=== PATIENT | female | born 1955 | race Caucasian/White ===

== ENCOUNTER 2016-11-27 15:17 | Outpatient (CLI) | payer BC, OTHER ==
[2016-11-27 18:52] LABS: BASOPHILS % (AUTO) 0.8 %; EOSINOPHILS # (AUTO) 0.3 10^3/uL (0.0-0.7); HCT - HEMATOCRIT 40.3 % (37.0-47.0); HGB - HEMOGLOBIN 13.5 g/dL (12.0-16.0); LYMPHOCYTES # (AUTO) 2.3 10^3/uL (1.5-3.5); LYMPHOCYTES % (AUTO) 41.8 %; MEAN CORPUSCULAR HEMOGLOBIN 31.4 pg (27.0-31.0); MEAN CORPUSCULAR HGB CONC 33.6 g/dL (32.0-36.0); MEAN CORPUSCULAR VOLUME 93.3 fL (81.0-99.0); MEAN PLATELET VOLUME 7.9 fL (7.9-10.8); MONOCYTES # (AUTO) 0.3 10^3/uL (0.0-1.0); MONOCYTES % (AUTO) 5.9 %; NEUTROPHILS # (AUTO) 2.5 10^3/uL (1.5-6.6); NEUTROPHILS % (AUTO) 46.5 %; NUCLEATED RED BLOOD CELLS AUTO 0.1 /100WBC; RED BLOOD COUNT 4.32 10^6/uL (4.20-5.40); RED CELL DISTRIBUTION WIDTH 13.1 % (12.0-15.0); UNCORRECTED WHITE BLOOD COUNT 5.5 x10^3/uL; WHITE BLOOD COUNT 5.5 x10^3/uL (4.8-10.8)
[2016-11-27 19:08] LABS: ALBUMIN/GLOBULIN RATIO 1.6 (1.0-2.2); BILIRUBIN,TOTAL 0.8 mg/dL (0.2-1.0); BUN - BLOOD UREA NITROGEN 11 mg/dL (6-20); CALCIUM 9.1 mg/dL (8.5-10.3); CARBON DIOXIDE - CO2 27 mmol/L (21-32); CHLORIDE 103 mmol/L (101-111); CHOL/HDL RATIO 3.2 (<4.4); CHOLESTEROL 224 mg/dL; CREATININE 0.7 mg/dL (0.4-1.0); GFR - MDRD 85 (>89); GLUCOSE 92 mg/dL (70-100); HDL CHOLESTEROL 70 mg/dL; SODIUM 137 mmol/L (135-145); TOTAL PROTEIN 6.6 g/dL (6.7-8.2); TRIGLYCERIDES 79 mg/dL; VLDL CHOLESTEROL 16 mg/dL
== END 2016-11-27 15:18 | disposition home or self-care (01) ==
LOC: LAB.N 15:17
PROVIDERS: ATTEND Physician Assistant
DX: E78.5 Hyperlipidemia, unspecified (principal)
CPT/HCPCS: 36415; 80053; 80061; 84443; 85025

== ENCOUNTER 2016-12-15 09:21 | Outpatient (CLI) | payer OTHER | END 2016-12-15 09:22 | disposition home or self-care (01) | LOC: SC 09:21 | PROVIDERS: ATTEND Internal Medicine Pulmonary Disease | DX: G47.10 Hypersomnia, unspecified (principal); R06.83 Snoring | CPT/HCPCS: 99203; 99212 ==

== ENCOUNTER 2017-01-08 14:35 | Outpatient (CLI) | payer OTHER | END 2017-01-08 14:36 | disposition home or self-care (01) | LOC: LAB.WCP 14:35 | PROVIDERS: ATTEND Family Medicine | DX: Z20.5 Contact with and (suspected) exposure to viral hepatitis (principal) | CPT/HCPCS: 36415; 86803 ==

== ENCOUNTER 2017-01-20 19:19 | Outpatient (CLI) | payer OTHER | END 2017-01-20 19:20 | disposition home or self-care (01) | LOC: SC 19:19 | PROVIDERS: ATTEND Internal Medicine Pulmonary Disease | DX: G47.33 Obstructive sleep apnea (adult) (pediatric) (principal) | CPT/HCPCS: 95810 ==

== ENCOUNTER 2017-02-16 14:12 | Outpatient (CLI) | payer OTHER | END 2017-02-16 14:13 | disposition home or self-care (01) | LOC: SC 14:12 | PROVIDERS: ATTEND Nurse Practitioner Family | DX: G47.33 Obstructive sleep apnea (adult) (pediatric) (principal) | CPT/HCPCS: 99212; 99214 ==

== ENCOUNTER 2017-04-22 20:25 | Outpatient (CLI) | payer OTHER | END 2017-04-22 20:26 | disposition home or self-care (01) | LOC: SC 20:25 | PROVIDERS: ATTEND Internal Medicine Pulmonary Disease | DX: G47.33 Obstructive sleep apnea (adult) (pediatric) (principal) | CPT/HCPCS: 95811 ==

== ENCOUNTER 2017-05-27 14:11 | Outpatient (CLI) | payer OTHER | END 2017-05-27 14:12 | disposition home or self-care (01) | LOC: SC 14:11 | PROVIDERS: ATTEND Nurse Practitioner Family | DX: G47.33 Obstructive sleep apnea (adult) (pediatric) (principal) | CPT/HCPCS: 99212; 99214 ==

== ENCOUNTER 2017-07-13 11:14 | Outpatient (CLI) | payer OTHER | END 2017-07-13 11:15 | disposition home or self-care (01) | LOC: SC 11:14 | PROVIDERS: ATTEND Nurse Practitioner Family | DX: G47.33 Obstructive sleep apnea (adult) (pediatric) (principal) | CPT/HCPCS: 99212; 99215 ==

== ENCOUNTER 2017-08-24 15:17 | Outpatient (CLI) | payer OTHER | END 2017-08-24 15:18 | disposition home or self-care (01) | LOC: SC 15:17 | PROVIDERS: ATTEND Nurse Practitioner Family | DX: G47.33 Obstructive sleep apnea (adult) (pediatric) (principal) | CPT/HCPCS: 99212; 99214 ==

== ENCOUNTER 2017-11-04 15:25 | Outpatient (CLI) | payer OTHER | END 2017-11-04 15:26 | disposition home or self-care (01) | LOC: SC 15:25 | PROVIDERS: ATTEND Nurse Practitioner Family | DX: G47.33 Obstructive sleep apnea (adult) (pediatric) (principal); R53.83 Other fatigue | CPT/HCPCS: 99212; 99214 ==

== ENCOUNTER 2017-11-13 09:31 | Outpatient (CLI) | payer OTHER ==
[2017-11-13 12:59] LABS: EOSINOPHILS # (AUTO) 0.4 10^3/uL (0.0-0.7); EOSINOPHILS % (AUTO) 7.8 %; HGB - HEMOGLOBIN 13.9 g/dL (12.0-16.0); LYMPHOCYTES # (AUTO) 1.9 10^3/uL (1.5-3.5); MEAN CORPUSCULAR HEMOGLOBIN 31.9 pg (27.0-31.0); MEAN CORPUSCULAR HGB CONC 33.4 g/dL (32.0-36.0); MEAN CORPUSCULAR VOLUME 95.3 fL (81.0-99.0); MEAN PLATELET VOLUME 7.8 fL (7.9-10.8); MONOCYTES # (AUTO) 0.4 10^3/uL (0.0-1.0); MONOCYTES % (AUTO) 7.9 %; NEUTROPHILS # (AUTO) 2.2 10^3/uL (1.5-6.6); NEUTROPHILS % (AUTO) 44.3 %; PLT - PLATELET COUNT 243 10^3/uL (130-450); RED BLOOD COUNT 4.35 10^6/uL (4.20-5.40); RED CELL DISTRIBUTION WIDTH 13.2 % (12.0-15.0); WHITE BLOOD COUNT 4.9 x10^3/uL (4.8-10.8)
[2017-11-13 14:05] LABS: ALBUMIN 3.6 g/dL (3.2-5.5); ALBUMIN/GLOBULIN RATIO 1.2 (1.0-2.2); ALKALINE PHOSPHATASE 71 IU/L (42-121); ALT ALANINE AMINOTRANSFERASE 19 IU/L (10-60); AST ASPARTATE AMINOTRANSFERASE 18 IU/L (10-42); BILIRUBIN,TOTAL 0.7 mg/dL (0.2-1.0); BUN - BLOOD UREA NITROGEN 18 mg/dL (6-20); CALCIUM 9.2 mg/dL (8.5-10.3); CARBON DIOXIDE - CO2 28 mmol/L (21-32); CHLORIDE 103 mmol/L (101-111); CHOL/HDL RATIO 3.6 (<4.4); CHOLESTEROL 238 mg/dL; CREATININE 0.7 mg/dL (0.4-1.0); GFR - MDRD 85 (>89); GLUCOSE 92 mg/dL (70-100); HDL CHOLESTEROL 67 mg/dL; LDL CHOLESTEROL,CALCULATED 145 mg/dL; LDL/HDL RATIO 2.2 (<4.4); SODIUM 137 mmol/L (135-145); TOTAL PROTEIN 6.7 g/dL (6.7-8.2); VLDL CHOLESTEROL 26 mg/dL
== END 2017-11-13 09:32 | disposition home or self-care (01) ==
LOC: LAB.WCP 09:31
PROVIDERS: ATTEND Family Medicine
DX: I10 Essential (primary) hypertension (principal); E78.00 Pure hypercholesterolemia, unspecified
CPT/HCPCS: 36415; 80053; 80061; 83721; 84443; 85025

== ENCOUNTER 2018-04-09 14:23 | Outpatient (CLI) | payer OTHER ==
--- NOTE | 2018-04-12 08:17 | Mammography Report ---
Reason: SCREENING MAMMO Procedure Date: 04/09/2018 Accession Number: [id number] / [id number] Procedure: MGN - Screening Mammo Dig Bilat CPT Code: FULL RESULT: EXAM: Screening Mammo Dig Bilat DATE: 04/09/2018 2:40 PM CLINICAL HISTORY: 63-year-old female for screening. TECHNIQUE: Bilateral CC and MLO views were obtained. COMPARISON: 11/29/2015, 05/03/2014, 02/04/2013, 04/29/2011. FINDINGS: The breasts demonstrate diffuse fatty replacement bilaterally. No suspicious masses, clustered microcalcifications, or regions of architectural distortion are identified. IMPRESSION: Negative examination RECOMMENDATION: Routine annual screening unless otherwise clinically indicated. BIRADS CATEGORY 1: Negative STANDARD QUALIFYING STATEMENTS: 1. This examination was reviewed with the aid of Computer-Aided Detection (CAD). 2. A negative or benign imaging report should not delay biopsy if clinically suspicious findings are present. Consider surgical consultation if warranted. More than 5% of cancers are not identified by imaging. 3. Dense breasts may obscure an underlying neoplasm. 4. This examination was reviewed without the aid of 3D breast imaging (tomosynthesis).
== END 2018-04-09 14:24 | disposition home or self-care (01) ==
LOC: DI.N 14:23
DX: Z12.31 Encounter for screening mammogram for malignant neoplasm of breast (principal)
CPT/HCPCS: 77067

== ENCOUNTER 2018-05-11 14:50 | Outpatient (CLI) | payer OTHER | END 2018-05-11 14:51 | disposition home or self-care (01) | LOC: SC 14:50 | PROVIDERS: ATTEND Nurse Practitioner Family | DX: G47.33 Obstructive sleep apnea (adult) (pediatric) (principal) | CPT/HCPCS: 99212; 99214 ==

== ENCOUNTER 2020-03-30 09:37 | Outpatient (CLI) | payer OTHER ==
[2020-03-30 11:42] LABS: BASOPHILS # (AUTO) 0.1 10^3/uL (0.0-0.1); BASOPHILS % (AUTO) 1.2 %; EOSINOPHILS # (AUTO) 0.4 10^3/uL (0.0-0.7); EOSINOPHILS % (AUTO) 7.4 %; HGB - HEMOGLOBIN 14.7 g/dL (12.0-16.0); LYMPHOCYTES # (AUTO) 2.2 10^3/uL (1.5-3.5); LYMPHOCYTES % (AUTO) 43.5 %; MEAN CORPUSCULAR HGB CONC 33.2 g/dL (32.0-36.0); MEAN CORPUSCULAR VOLUME 96.3 fL (81.0-99.0); MEAN PLATELET VOLUME 9.8 fL (7.9-10.8); MONOCYTES # (AUTO) 0.5 10^3/uL (0.0-1.0); MONOCYTES % (AUTO) 9.4 %; NEUTROPHILS % (AUTO) 38.3 %; PLT - PLATELET COUNT 255 10^3/uL (130-450); RED CELL DISTRIBUTION WIDTH 12.3 % (12.0-15.0); WHITE BLOOD COUNT 5.1 x10^3/uL (4.8-10.8)
[2020-03-30 11:47] LABS: ALBUMIN 4.1 g/dL (3.2-5.5); ALBUMIN/GLOBULIN RATIO 1.4 (1.0-2.2); ALKALINE PHOSPHATASE 81 IU/L (42-121); ALT ALANINE AMINOTRANSFERASE 19 IU/L (10-60); AST ASPARTATE AMINOTRANSFERASE 15 IU/L (10-42); BILIRUBIN,TOTAL 0.9 mg/dL (0.2-1.0); BUN - BLOOD UREA NITROGEN 22 mg/dL (6-20); CALCIUM 9.5 mg/dL (8.5-10.3); CARBON DIOXIDE - CO2 27 mmol/L (21-32); CHLORIDE 105 mmol/L (101-111); CHOL/HDL RATIO 3.4 (<4.4); CHOLESTEROL 257 mg/dL; CREATININE 0.9 mg/dL (0.4-1.0); GLUCOSE 100 mg/dL (70-100); HDL CHOLESTEROL 76 mg/dL; LDL CHOLESTEROL,CALCULATED 168 mg/dL; LDL/HDL RATIO 2.2 (<4.4); SODIUM 140 mmol/L (135-145); VLDL CHOLESTEROL 13 mg/dL
[2020-03-30 12:35] LABS: FREE T4 (FREE THYROXINE) 1.08 ng/dL (0.58-1.64)
== END 2020-03-30 23:59 | disposition home or self-care (01) ==
LOC: LAB.WCP 09:37
PROVIDERS: ATTEND Family Medicine
DX: Z00.00 Encounter for general adult medical examination without abnormal findings (principal); E03.9 Hypothyroidism, unspecified
CPT/HCPCS: 36415; 80053; 80061; 83721; 84439; 84443; 85025

== ENCOUNTER 2020-05-01 15:03 | Outpatient (CLI) | payer OTHER ==
--- NOTE | 2020-05-02 08:47 | Mammography Report ---
BILATERAL DIGITAL SCREENING MAMMOGRAM 3D/2D: 05/01/2020 CLINICAL: Routine screening. Comparison is made to exams dated: 04/09/2018 mammogram, 11/29/2015 mammogram, 05/03/2014 mammogram, mammogram, 04/29/2011 mammogram, and 08/13/2009 mammogram - [facility]. The re are scattered fibroglandular elements in both breasts. No significant masses, calcifications, or other findings are seen in either breast. There has been no significant interval change. IMPRESSION: NEGATIVE There is no mammographic evidence of malignancy. A 1 year screening mammogram is recommended. This exam was interpreted at Station ID: [id number]. NOTE: For mammograms, a report in lay terms will be sent to the patient. Approximately 15% of breast malignancies will not be visualized mammographically. In the management of a palpable breast mass, a negative mammogram must not discourage biopsy of a clinically suspicious lesion. Electronically Signed By: Kamlesh henley/cali:05/01/2020 16:59:55 ACR BI-RADS Category 1: Negative 3341F PARENCHYMAL PATTERN: (A) - The breast(s) demonstrate(s) scattered fibroglandular densities. BI-RADS CATEGORY: (1) - 1 RECOMMENDATION: (ANNUAL) - Recommend routine annual screening mammography. [id number] 1 year screening LATERALITY: (B)
== END 2020-05-01 15:04 | disposition home or self-care (01) ==
LOC: DI.N 15:03
DX: Z12.31 Encounter for screening mammogram for malignant neoplasm of breast (principal)

== ENCOUNTER 2020-08-01 15:09 | Outpatient (CLI) | payer OTHER ==
--- NOTE | 2020-08-01 15:52 | SLEEP CARE CONSULTATION ---
Information from patient questionnaire entered by Jazz Maurice. I have reviewed and concur with the information entered by Jazz Maurice. This document represents the service I personally performed and the decisions made by , Melissa Reed ARNP. History of Present Illness Service Date and Time: 08/01/2020 1509 Previous diagnosis: Severe, Obstructive Sleep Apnea-Hypopnea Syndrome AHI: 30.4 Reason for follow up: annual (Last seen 04/2018) Equipment type: CPAP Equipment obtained from: Other (online; getting supplies cheaper and as needed) Mask style: Nasal Backup mask available: No (will need to keep mask when replaced) Last cushion change: 2 months Year and Where: 2017 [facility] Type of Sleep Study: Polysomnography HPI additional information: PILAR MEDINA was diagnosed to have severe, AHI 30.4, obstructive sleep apnea- hypopnea syndrome and returned today for CPAP therapy annual follow-up. CPAP Compliance Data - Data Reviewed with Patient Average duration of nightly device use: 8 h 37 min Compliance rate %: 77.2 Current pressure setting (cmH2O): 12-16 Humidity settin Heated hose settin Average residual AHI: 3.8 Average large leak: 12 min 45 sec Subjective Patient concerns: reports: dry mouth, nose, throat. denies: aerophagia, mask discomfort, air blowing in eyes, mask leak noise, condensation in mask/hose, nasal congestion, epistaxis, other Observed to snore while using device: No Current pressure setting perceived as: comfortable On therapy, patient: reports: sleeping better, awakening more refreshed, being more awake and alert during the day, more rested overall. denies: drowsiness while driving Initial [place] Sleepiness Scale score: 16 (in 2017) Current [place] Sleepiness Scale score: 7 Allergies and Home Medications Drug allergies reviewed: Yes (NKDA) Home medication list reviewed: Yes (no new medications) Review of Systems Review of systems same as previous: Yes (no changes) Physical Exam Heart Rate: 69 O2 Saturation: 98 Height: 5 ft 4 in Weight: 164 lb Body Mass Index: 28.1 BMI Classification: Overweight Impression and Plan 1. Obstructive Sleep Apnea-Hypopnea Syndrome, severe, with fair treatment compliance and good apnea control. On CPAP therapy, the patient has better sleep quality and is more rested overall. She has some mouth dryness. Her humidity is set at 5. Oral dryness can be reduced by adjusting humidity setting higher or heated hose lower or by adjusting both settings. Verbal instructions given on how to change humidity and heated hose settings with rationale explaining why to change. Patient is using a chinstrap to keep mouth closed but is not sure if it is working. She was advised that she could try a full face mask and options were shown to her that are in the office. She would like to try the [facility] full face mask. She obtains her supplies online because it is cheaper for her. She will try this mask to see if it will help with the mouth dryness. Patient adv ised that chronic oral dryness can affect dental health. In addition, there are oral dryness products that can be used to reduce dryness such as Biotene products, Dry mouth rinse and Xylomelts. Patient voiced understanding. Patient's apnea severity and rationale for treatment to reduce apnea, improve sleep quality and reduce cardiovascular and cerebrovascular events was reviewed. I also reviewed the benefit of consistent device use of CPAP for gastric reflux. * Continue auto CPAP pressure at 12-16 cmH2O * Notify me if snoring with mask or feeling that the pressure is too much or too little * Attempt to lose weight * Call this office if any problems using CPAP * Return for follow up in 1 year, or sooner if concerns arise Counseling Topics: Spare mask, Weight loss health impact Visit Type: In Office Time Spent with Patient (minutes): 31 Provider Statement: I spent 100% of the Face to Face Visit with the patient with greater than 50% spent counseling the patient and coordination of care.
== END 2020-08-01 15:10 | disposition home or self-care (01) ==
LOC: SC 15:09
PROVIDERS: ATTEND Nurse Practitioner Family
DX: G47.33 Obstructive sleep apnea (adult) (pediatric) (principal); E66.3 Overweight; Z68.28 Body mass index [BMI] 28.0-28.9, adult
CPT/HCPCS: 99212; 99213

== ENCOUNTER 2020-12-10 18:34 | Outpatient (CLI) | payer OTHER ==
--- NOTE | 2020-12-11 10:52 | XRAY Report ---
PROCEDURE: Ribs w/PA Chest LT INDICATIONS: FALL WITH L RIB PX TECHNIQUE: 3 views of the left ribs were acquired, along with a single view chest. COMPARISON: None FINDINGS: Surgical changes and devices: None. Bones and chest wall: No fractures or dislocations. No suspicious bony lesions. Overlying soft tis sues appear unremarkable. Lungs and pleura: No pleural effusions or pneumothorax. Lungs appear clear. Mediastinum: Mediastinal contours appear normal. Heart size is normal. IMPRESSION: No visualized acute fracture or dislocation. However, occult injury cannot be excluded. Recommend ely rt interval imaging follow-up in 7-10 days as clinically indicated for additional evaluation. Reviewed by: Ayana Jose MD on 12/11/2020 10:51 AM PDT Approved by: Ayana Jose MD on 12/11/2020 10:51 AM PDT Station ID: [id number]
== END 2020-12-10 23:59 | disposition home or self-care (01) ==
LOC: DI.N 18:34
PROVIDERS: ATTEND Physician Assistant Medical
DX: S22.32XA Fracture of one rib, left side, initial encounter for closed fracture (principal)

== ENCOUNTER 2021-06-08 09:41 | Outpatient (CLI) | payer OTHER, MEDICARE ==
[2021-06-08 14:05] LABS: BASOPHILS # (AUTO) 0.1 10^3/uL (0.0-0.1); BASOPHILS % (AUTO) 1.8 %; EOSINOPHILS # (AUTO) 0.3 10^3/uL (0.0-0.7); EOSINOPHILS % (AUTO) 7.3 %; HCT - HEMATOCRIT 42.5 % (37.0-47.0); HGB - HEMOGLOBIN 13.9 g/dL (12.0-16.0); LYMPHOCYTES # (AUTO) 1.8 10^3/uL (1.5-3.5); MEAN CORPUSCULAR HEMOGLOBIN 31.6 pg (27.0-31.0); MEAN CORPUSCULAR HGB CONC 32.7 g/dL (32.0-36.0); MEAN CORPUSCULAR VOLUME 96.6 fL (81.0-99.0); MEAN PLATELET VOLUME 10.1 fL (7.9-10.8); MONOCYTES # (AUTO) 0.4 10^3/uL (0.0-1.0); MONOCYTES % (AUTO) 8.2 %; NEUTROPHILS % (AUTO) 43.5 %; PLT - PLATELET COUNT 274 10^3/uL (130-450); RED CELL DISTRIBUTION WIDTH 12.2 % (12.0-15.0); WHITE BLOOD COUNT 4.5 x10^3/uL (4.8-10.8)
[2021-06-08 14:19] LABS: ALBUMIN 3.9 g/dL (3.2-5.5); ALBUMIN/GLOBULIN RATIO 1.3 (1.0-2.2); ALKALINE PHOSPHATASE 70 IU/L (42-121); ALT ALANINE AMINOTRANSFERASE 19 IU/L (10-60); AST ASPARTATE AMINOTRANSFERASE 14 IU/L (10-42); BILIRUBIN,TOTAL 0.7 mg/dL (0.2-1.0); BUN - BLOOD UREA NITROGEN 21 mg/dL (6-20); CALCIUM 9.4 mg/dL (8.5-10.3); CARBON DIOXIDE - CO2 27 mmol/L (21-32); CHLORIDE 104 mmol/L (101-111); CHOL/HDL RATIO 3.1 (<4.4); CHOLESTEROL 230 mg/dL; CREATININE 0.7 mg/dL (0.4-1.0); GFR - MDRD 84 (>89); GLUCOSE 100 mg/dL (70-100); HDL CHOLESTEROL 75 mg/dL; LDL CHOLESTEROL,CALCULATED 143 mg/dL; LDL/HDL RATIO 1.9 (<4.4); SODIUM 139 mmol/L (135-145); TOTAL PROTEIN 6.8 g/dL (6.7-8.2); TRIGLYCERIDES 59 mg/dL; VLDL CHOLESTEROL 12 mg/dL
[2021-06-08 14:28] LABS: THYROID STIMULATING HORMONE 3.78 uIU/mL (0.34-5.60)
== END 2021-06-08 09:42 | disposition home or self-care (01) ==
LOC: LAB.N 09:41
PROVIDERS: ATTEND Family Medicine
DX: E78.5 Hyperlipidemia, unspecified (principal); E03.9 Hypothyroidism, unspecified; K64.9 Unspecified hemorrhoids
CPT/HCPCS: 36415; 80053; 80061; 83721; 84443; 85025

== ENCOUNTER 2021-09-26 14:44 | Outpatient (CLI) | payer MEDICARE ==
--- NOTE | 2021-09-26 15:48 | DEXA Report ---
PROCEDURE: Dexa Spine and/or Hip INDICATIONS: POSTMENOPAUSAL TECHNIQUE: Dual energy x-ray absorptiometry (DXA) was performed on a [employer] System. Regions measur ed are the AP Spine, femoral neck, and if needed forearm. COMPARISON: None. FINDINGS: Lumbar Spine: Bone Mineral Density 1.0 g/cm/cm,T score -1.3, osteopenia Left total Hip: Bone Mineral Density 0.719 g/cm/cm,T score -2.3, osteopenia Left Femoral Neck: Bone Mineral Density 0.733 g/cm/cm, T score -2.2, osteopenia Impression: Osteopenia. Patients with diagnosis of osteoporosis or osteopenia should have regular bone mineral de nsity assessment. For those eligible for Medicare, routine testing is allowed once every 2 years. T esting frequency can be increased for patients who have rapidly progressing disease or for those who are receiving medical therapy to restore bone mass. Reviewed by: Shankar Viramontes MD on 09/26/2021 3:46 PM PDT Approved by: Shankar Viramontes MD on 09/26/2021 3:46 PM PDT Station ID: [id number]
== END 2021-09-26 14:45 | disposition home or self-care (01) ==
LOC: DI 14:44
PROVIDERS: ATTEND Family Medicine
DX: Z78.0 Asymptomatic menopausal state (principal); M85.89 Other specified disorders of bone density and structure, multiple sites; M17.0 Bilateral primary osteoarthritis of knee; M71.21 Synovial cyst of popliteal space [Baker], right knee

== ENCOUNTER 2021-09-26 16:05 | Outpatient (CLI) | payer MEDICARE ==
--- NOTE | 2021-09-26 17:14 | XRAY Report ---
PROCEDURE: Knee 4 View BILAT INDICATIONS: BILATERAL KNEE PAIN TECHNIQUE: 3 views of the right and left knee(s) were acquired. COMPARISON: None. FINDINGS: Bones: No fractures or dislocations. No suspicious bony lesions. Bilateral knee medial compartment severe osteoarthritic degenerative changes. Bilateral knee lateral and patellofemoral compartment mod erate osteoarthritic degenerative change. Soft tissues: Trace right knee nonspecific joint effusion. 1.7 cm coarse calcification noted posterio r to the right knee joint may represent ossified loose body within a popliteal cyst. IMPRESSION: Bilateral knee severe medial compartment, moderate lateral compartment and moderate patellofemoral co mpartment osteoarthritis. Possible 1.7 cm ossified loose body within the right popliteal cyst. Reviewed by: Charu Berman MD, PhD on 09/26/2021 5:13 PM PDT Approved by: Charu Berman MD, PhD on 09/26/2021 5:13 PM PDT Station ID: [id number]
== END 2021-09-26 16:06 | disposition home or self-care (01) ==
LOC: DI.N 16:05
PROVIDERS: ATTEND Family Medicine
DX: M17.0 Bilateral primary osteoarthritis of knee (principal); M71.21 Synovial cyst of popliteal space [Baker], right knee

== ENCOUNTER 2021-10-19 13:40 | Emergency (ER) | payer MEDICARE ==
[2021-10-19 13:53] VITALS: BP 158/82
--- NOTE | 2021-10-19 13:55 | ED Physician Documentation ---
PD HPI LOWER EXT INJURY - Stated complaint Stated Complaint: LEG PX - Chief complaint Chief Complaint: Ext Problem - History obtained from History obtained from: Patient - History of Present Illness PD HPI LOW EXT INJURY LOCATION: Right, Knee, Lower leg Type of injury: Blunt / blow (she states a tray fell at work, striking her medial upper part of lower leg right side. Had swelling and faint bruising color there after injury. It has continued to be tender there and now has redness and firmness under skin. Went to [facility] and provider there was concerned about DVT.) Where injury occurred: Work Timing - onset: How many days ago (5) Timing - duration: Days (5) Timing - details: Abrupt onset, Still present Worsened by: Palpating Associated symptoms: Swelling, Discolored (red locally just at medial upper tibia and knee.). No: Weakness, Numbness Review of Systems Constitutional: denies: Fever, Chills Nose: denies: Rhinorrhea / runny nose, Congestion Throat: denies: Sore throat Cardiac: denies: Chest pain / pressure, Palpitations, Pedal edema, Calf pain Respiratory: denies: Dyspnea, Cough, Wheezing Skin: denies: Abrasion (s), Laceration (s) Neurologic: denies: Focal weakness, Numbness PD PAST MEDICAL HISTORY - Past Medical History Cardiovascular: None (no history of DVT/PE.) Respiratory: None Endocrine/Autoimmune: HyPERthyroidism Psych: None Musculoskeletal: None - Present Medications Home Medications: Ambulatory Orders Medication Instructions Recorded Confirmed Levothyroxine [Synthroid] 100 mcg ORAL DAILY 03/22/14 10/19/21 - Allergies Allergies/Adverse Reactions: Allergies Allergy/AdvReac Type Severity Reaction Status Date / Time No Known Drug Allergies Allergy Verified 10/19/21 13:53 - Living Situation Living Situation: reports: Alone Living Arrangement: reports: At home - Social History Does the pt smoke?: No Does the pt have substance abuse?: No - Family History Family history: reports: CAD. denies: Venous thromboembolism PD ED PE NORMAL - Vitals Vital signs reviewed: Yes - General General: Alert and oriented X 3, No acute distress, Well developed/nourished - Derm Derm: Normal color, Warm and dry - Extremities Extremities: Normal ROM s pain, No edema, Other (medial side of right knee and upper lower leg over tibial plateau with superficial redness and some tender, with warmth, redness, firmness in area. Firmness feels in shape of venous vessel, c/s superficial phlebitis. ) - Neuro Neuro: Alert and oriented X 3, No motor deficit, No sensory deficit, Normal speech Results - Vitals Vitals: Vital Signs - 24 hr 10/19/21 13:48 Temperature 36.3 C L Heart Rate 78 Respiratory 16 Rate Blood Pressure 158/82 H O2 Saturation 99 Oxygen O2 Source Room air - Rads (name of study) duplex right lower ext Radiology: Prelim report reviewed, See rad report, Other (from U/S tech: no DVT. SVT is visible on scan. ) PD MEDICAL DECISION MAKING - ED course Complexity details: reviewed results, considered differential (the area looks and feels c/w post-contusion superficial thrombophlebitis. Discussed with patient and shared decision to get U/S to ensure not deep veins as well. ), d/w patient Departure - Departure Disposition: 01 Home, Self Care Clinical Impression: Superficial phlebitis and thrombophlebitis of right lower extremity Clinical Impression: (Ruled Out): Deep vein thrombosis Condition: Stable Record reviewed to determine appropriate education?: Yes Instructions: ED Phlebitis Superficial Follow-Up: Silver Cortes DO [Primary Care Provider] - Comments: Warm moist towels to the area 2-3 times daily to help soften the clot and the surface vein. Your ultrasound did not show any signs of clots in the deep veins. You can use a small wrap on the area to help with some of the inflammation or swelling. We also typically suggest anti-inflammatory such as ibuprofen or naproxen 2 tablets 2-3 times daily for the next week. Take these with food. Add Tylenol every 4-6 hours if needed for pains. I would anticipate improvement over the next several days to week. Recheck if worsening. Discharge Date/Time: 10/19/21 15:46
[2021-10-19] MEDS ORDERED: NAPROXEN 250 MG TABLET PO STA (14:09)
--- NOTE | 2021-10-19 16:02 | Ultrasound Report ---
PROCEDURE: Duplex Ext Veins Right INDICATIONS: superficial phlebitis, eval for DVT too TECHNIQUE: Real-time imaging, as well as color and pulse Doppler interrogation, were performed of the lower extr emity deep veins from the inguinal ligament to the popliteal fossa. COMPARISON: 03/13/2014 FINDINGS: The deep veins are normally compressible, and free of intraluminal thrombus. Color and pu lse Doppler demonstrate normal phasic intraluminal flow. There is normal augmentation response to di stal compression maneuver. Thrombosed superficial proximal calf varicosities can be seen. A Jasmine's cyst is seen measuring 5.3 x 1.2 x 3.3 cm. IMPRESSION: No findings of deep venous thrombosis are seen. Thrombosed superficial varicosities can be seen within the region of the calf. Note: Concordant preliminary findings given by the market news reporter upon the completion of the examination to Dr. Tavares. Reviewed by: Sascha Tay MD on 10/19/2021 3:00 PM AUDI Approved by: Sascha Tay MD on 10/19/2021 3:00 PM AUDI Station ID: [id number]
== END 2021-10-19 15:46 | disposition home or self-care (01) ==
LOC: ED 13:40
DX: I80.01 Phlebitis and thrombophlebitis of superficial vessels of right lower extremity (principal)
CPT/HCPCS: 93971; 99282; 99284; A9270

== ENCOUNTER 2021-11-11 13:30 | Outpatient (CLI) | payer MEDICARE ==
--- NOTE | 2021-11-12 13:43 | Mammography Report ---
BILATERAL DIGITAL SCREENING MAMMOGRAM 3D/2D WITH EXAGGERATED CC: 11/11/2021 CLINICAL: Routine screening. Comparison is made to exams dated: 05/01/2020 mammogram, 04/09/2018 mammogram, 11/29/2015 mammogram, an d 05/03/2014 mammogram - [facility]. There are scattered fibroglandular elements i n both breasts. No significant masses, calcifications, or other findings are seen in either breast. There has been no significant interval change. IMPRESSION: NEGATIVE There is no mammographic evidence of malignancy. A 1 year screening mammogram is recommended. This exam was interpreted at Station ID: [id number]. NOTE: For mammograms, a report in lay terms will be sent to the patient. Approximately 15% of breast malignancies will not be visualized mammographically. In the management of a palpable breast mass, a negative mammogram must not discourage biopsy of a clinically suspicious lesion. Electronically Signed By: Klever Lebron M.D. slc/penrad:11/11/2021 14:32:17 ACR BI-RADS Category 1: Negative 3341F PARENCHYMAL PATTERN: (A) - The breast(s) demonstrate(s) scattered fibroglandular densities. BI-RADS CATEGORY: (1) - 1 RECOMMENDATION: (ANNUAL) - Recommend routine annual screening mammography. [id number] 1 year screening LATERALITY: (B)
== END 2021-11-11 13:31 | disposition home or self-care (01) ==
LOC: DI.S 13:30
DX: Z12.31 Encounter for screening mammogram for malignant neoplasm of breast (principal)

== ENCOUNTER 2022-01-24 23:08 | Outpatient (CLI) | payer MEDICARE | END 2022-01-24 23:09 | disposition critical access hospital (66) | LOC: EMS 23:08 | DX: R41.0 Disorientation, unspecified (principal); R40.4 Transient alteration of awareness; M25.532 Pain in left wrist; W18.39XA Other fall on same level, initial encounter; Y92.481 Parking lot as the place of occurrence of the external cause; Z72.89 Other problems related to lifestyle | CPT/HCPCS: A0425; A0427 ==

== ENCOUNTER 2022-01-24 23:26 | Emergency (ER) | payer MEDICARE, OTHER ==
--- NOTE | 2022-01-25 00:30 | ED Physician Documentation ---
PD HPI Fall - Stated complaint Stated Complaint: ETOH, FELL, LOC - Chief complaint Chief Complaint: Trauma Hd/Nk - History obtained from History obtained from: Patient, EMS - History of Present Illness Mechanism of injury: Unknown Fall distance: Standing position Where injury occurred: Park Injury(ies) location: Left Uppper Extremity Quality of pain: Pain Associated symptoms: No: LOC, AMS, Amnesia, Neck pain, Weakness Worsens with: Movement, Palpation Contributing factors: Intoxicated. No: Anticoagulated Recently seen: Not recently seen - Additional information Additional information: BIBA from [employer]. Patient does not recall events leading to this ED visit. She admits to drinking alcohol tonight. She does not recall falling, tripping. She is oriented x 3, although slow to recall location and year. Her only c/o is left wrist pain . She is right hand dominant. She recalls being at the [employer], then being on ground and being transported to the hospital. Review of Systems Cardiac: reports: Reviewed and negative Respiratory: reports: Reviewed and negative GI: reports: Reviewed and negative Musculoskeletal: reports: Joint pain (left wrist), Joint swelling. denies: Neck pain, Back pain, Extremity pain, Extremity swelling Neurologic: denies: Generalized weakness, Focal weakness, Numbness, Headache, Head injury, LOC PD PAST MEDICAL HISTORY - Past Medical History Cardiovascular: None (no history of DVT/PE.) Respiratory: None Endocrine/Autoimmune: HyPERthyroidism Psych: None Musculoskeletal: None - Past Surgical History Past Surgical History: No - Present Medications Home Medications: Ambulatory Orders Medication Instructions Recorded Confirmed Levothyroxine [Synthroid] 100 mcg ORAL DAILY 03/22/14 10/19/21 HYDROcod/ACETAM 5/325 [Carbon 5/325] 1 - 2 tablet PO Q6H PRN #14 tablet 01/25/22 Ondansetron Odt [Zofran] 4 mg TL Q6H PRN #10 tablet 01/25/22 - Allergies Allergies/Adverse Reactions: Allergies Allergy/AdvReac Type Severity Reaction Status Date / Time No Known Drug Allergies Allergy Verified 10/19/21 13:53 - Social History Does the pt smoke?: No Smoking Status: Current some day smoker Does the pt drink ETOH?: Yes Does the pt have substance abuse?: No PD ED PE NORMAL - Vitals Vital signs reviewed: Yes - General General: Alert and oriented X 3, No acute distress, Well developed/nourished, Other (on backboard and in cervical collar) - HEENT HEENT: Atraumatic, PERRL, EOMI - Neck Neck: No bony TTP - Cardiac Cardiac: RRR, No murmur - Respiratory Respiratory: No respiratory distress, Clear bilaterally - Abdomen Abdomen: Soft, Non tender - Extremities Extremities: No edema - Neuro Neuro: Alert and oriented X 3 (takes some time to recall location and year, but provides accurate answers after some thought), surgery specialist 2-12 intact, No motor deficit, No sensory deficit, Normal speech Eye Opening: Spontaneous Motor: Obeys Commands Verbal: Oriented GCS Score: 15 PD ED PE EXPANDED - Extremities Extremities: Deformity, Tenderness, Limited ROM, Swelling, Left wrist, Sensory intact, Vascular intact Results - Vitals Vitals: Oxygen O2 Source Room air - Rads (name of study) left wrist xrays Radiology: Prelim report reviewed, See rad report CT head Radiology: Prelim report reviewed, See rad report CT cervical spine Radiology: Prelim report reviewed, See rad report Procedures - Splint (location) Upper extremity left Splint applied by: Tech Type of splint: Fiberglass, Short arm, Sugar tong Other: Patient tolerated well, No complications, Neurovascular intact, Good alignment, Sling provided PD MEDICAL DECISION MAKING - ED course Complexity details: reviewed results, re-evaluated patient, considered differential, d/w patient ED course: [place] [employer]. She admits to drinking alcohol tonight and is clinically intoxicated (polite, pleasant, but does not recall events, slurred speech). CTH and CT cervical spine without concerning findings. Left wrist fracture on xrays. Splint is placed on left wrist to stabilize the fracture and after several hours observation, she becomes more awake and alert and comfortable with d/c home. Results of tests d/w patient. I instructed her to follow up with orthopedic surgery for reevaluation of the wrist injury I removed the cervical spine collar at 02:15; CT cervical spine without concerning findings, denies neck pain, AAOx3. Departure - Departure Disposition: 01 Home, Self Care Clinical Impression: Fall Qualifiers: Encounter type: initial encounter Qualified Code(s): W19.XXXA - Unspecified fall, initial encounter Wrist fracture, left Qualifiers: Encounter type: initial encounter Fracture type: closed Qualified Code(s): S62.102A - Fracture of unspecified carpal bone, left wrist, initial encounter for closed fracture Condition: Good Instructions: ED Fx Wrist General Follow-Up: Yousuf Gomez MD [Provider Admit Priv/Credential] - Prescriptions: HYDROcod/ACETAM 5/325 [Carbon 5/325] 1 - 2 tablet PO Q6H PRN #14 tablet PRN Reason: Pain Ondansetron Odt [Zofran] 4 mg TL Q6H PRN #10 tablet PRN Reason: Nausea / Vomiting Comments: Keep the splint in place until you are seen by an orthopedic surgeon, ideally within the coming week. Contact information for an orthopedic surgeon has been provided elsewhere on these discharge instructions; you can contact that office but if an appointment cannot be arranged within the coming week, you can also contact your primary care provider's office to inquire about a referral. Prescriptions for ondansetron (anti-nausea medication) and vicodin (opiate pain medication) have been electronically submitted to [facility] pharmacy in [place]. Do not drink any alcohol or take any sedating medication if you take the vicodin. As we discussed, you should start taking a stool softener if you take the pain medication to prevent constipation Discharge Date/Time: 01/25/22 05:33
--- NOTE | 2022-01-25 01:23 | CT Report ---
PROCEDURE: HEAD WO INDICATIONS: fall, LOC, intoxicated TECHNIQUE: Noncontrast 4.5 mm thick angled axial sections acquired from the foramen magnum to the vertex. For r adiation dose reduction, the following was used: automated exposure control, adjustment of mA and/or kV according to patient size. COMPARISON: None. FINDINGS: Image quality: Excellent. CSF spaces: Basal cisterns are patent. No extra-axial fluid collections. Ventricles are normal in size and shape. Brain: No intracranial hemorrhage, mass, or mass effect. Macdonald-white matter interface appears preser june. Skull and face: Calvarium and visualized facial bones are intact, without suspicious lesions. Sinuses: Visualized sinuses demonstrate moderate mucosal thickening in the ethmoid sinuses and mild thickening in the maxillary sinuses. Mastoid air cells are clear. IMPRESSION: 1. No acute intracranial abnormality. Reviewed by: Kamlesh Tavarez MD on 01/25/2022 1:22 AM PDT Approved by: Kamlesh Tavarez MD on 01/25/2022 1:22 AM PDT Station ID: [id number]
--- NOTE | 2022-01-25 01:26 | CT Report ---
PROCEDURE: CERVICAL SPINE WO INDICATIONS: fall, LOC, intoxicated TECHNIQUE: Noncontrast 3 mm thick sections acquired from the skull base to the T4 level. Sagittal and coronal r eformats were then constructed. For radiation dose reduction, the following was used: automated exp osure control, adjustment of mA and/or kV according to patient size. COMPARISON: None. FINDINGS: Image quality: Excellent. Bones: No fractures or subluxation. There is straightening of the cervical lordosis. Multilevel dege nerative disc disease, uncovertebral joint arthropathy, and facet joint arthropathy are present. Visu alized superior ribs are intact. Soft tissues: Prevertebral soft tissues are normal in thickness. No paravertebral hematomas. No ap ical pneumothoraces. IMPRESSION: 1. No fracture or subluxation. Reviewed by: Kamlesh Mckay MD on 01/25/2022 1:25 AM PDT Approved by: Kamlesh Mckay MD on 01/25/2022 1:25 AM PDT Station ID: [id number]
--- NOTE | 2022-01-25 01:28 | XRAY Report ---
PROCEDURE: Wrist 3 View LT INDICATIONS: fall, left wrist pain TECHNIQUE: 3 views of the wrist were acquired. COMPARISON: None. FINDINGS: Bones: There is a mildly impacted fracture of the distal radius with articular extension to the radio carpal and distal radioulnar joints. Mild to moderate osteoarthritic changes demonstrated at the firs t carpometacarpal joint and triscaphe articulation. No suspicious bony lesions. Soft tissues: There is periarticular soft tissue swelling of the wrist most prominent dorsally. No s uspicious soft tissue calcifications. IMPRESSION: 1. Mildly impacted intra-articular fracture of the distal radius. Reviewed by: Kamlesh Mckay MD on 01/25/2022 1:27 AM PDT Approved by: Kamlesh Mckay MD on 01/25/2022 1:27 AM PDT Station ID: [id number]
[2022-01-25] MEDS ORDERED: ONDANSETRON 4 MG/2 ML VIAL IM STA (04:54)
[2022-01-25 05:03] VITALS: BP 167/96
== END 2022-01-25 05:33 | disposition home or self-care (01) ==
LOC: ED 23:26
DX: S62.102A Fracture of unspecified carpal bone, left wrist, initial encounter for closed fracture (principal); W19.XXXA Unspecified fall, initial encounter; Y92.830 Public park as the place of occurrence of the external cause; F17.200 Nicotine dependence, unspecified, uncomplicated
CPT/HCPCS: 29125; 99283; 99284

== ENCOUNTER 2022-02-05 09:42 | Outpatient (CLI) | payer MEDICARE | END 2022-02-05 09:43 | disposition home or self-care (01) | LOC: LAB 09:42 | PROVIDERS: ATTEND Orthopaedic Surgery | DX: Z01.812 Encounter for preprocedural laboratory examination (principal); S52.502A Unspecified fracture of the lower end of left radius, initial encounter for closed fracture; Z20.822 Contact with and (suspected) exposure to COVID-19 ==

== ENCOUNTER 2022-02-06 11:25 | Day surgery (SDC) | payer MEDICARE ==
[2022-02-06] MEDS ORDERED: CEFAZOLIN 2G/50ML 0.9% NS 2 GM/50 ML BAG IV ONE (11:44)
[2022-02-06] MEDS ORDERED: ACETAMINOPHEN 500 MG TABLET PO ONE (11:44)
[2022-02-06] MEDS ORDERED: CELECOXIB 100 MG CAPSULE PO ONE (11:45)
[2022-02-06] MEDS ORDERED: LACTATED RINGERS 1,000 ML IV ONE ×2 (11:57→13:58)
--- NOTE | 2022-02-06 12:12 | ANESTHESIA ---
Pre-Anesthesia VS, & Labs - Diagnosis left wrist fracture - Procedure left wrist closed reduction, percutaneous pinning Vital Signs: Temp Pulse Resp BP Pulse Ox 36.9 C 75 16 153/96 H 100 02/06/22 11:42 02/06/22 11:42 02/06/22 11:42 02/06/22 11:42 02/06/22 11:42 Height: 5 ft 4 in Weight (kg): 65 kg Body Mass Index: 24.5 BMI Classification: Healthy weight - NPO >8 hours - Is Patient ?: No Home Medications and Allergies Levothyroxine [Synthroid] 100 mcg ORAL DAILY 03/22/14 Allergies/Adverse Reactions: Allergies Allergy/AdvReac Type Severity Reaction Status Date / Time No Known Drug Allergies Allergy Verified 10/19/21 13:53 Anes History & Medical History - Anesthetic History Anesthesia Complications: reports: No previous complications - Medical History Cardiovascular: reports: None Pulmonary: reports: None, Sleep apnea, CPAP use Gastrointestinal: reports: None Urinary: reports: None Musculoskeletal: reports: None, Osteoarthritis Endocrine/Autoimmune: reports: HyPOthyroidism Skin: reports: None Smoking Status: Current some day smoker Psychosocial: reports: Alcohol (social) History of Cancer?: No - Surgical History General: reports: Colonoscopy Exam General: Alert, Oriented x3 Dental: WNL Mouth Opening: Greater than 4 Fingerbreadths Neck Mobility: Normal Mallampati classification: II Respiratory: Lungs clear Cardiovascular: Regular rate Plan Anesthesia Type: General, Supraclavicular Block Consent for Procedure(s) Verified and Reviewed: Yes Code Status: Attempt Resuscitation ASA classification: 2-Mild systemic disease Is this case an emergency?: No
[2022-02-06] MEDS ORDERED: PROPOFOL 200 MG/20 ML VIAL IVP ONE (12:36)
[2022-02-06] MEDS ORDERED: LIDOCAINE-MPF 2% 5 ML VIAL ONE ×2 (12:36→12:53)
[2022-02-06] MEDS ORDERED: fentaNYL 100 MCG/2 ML VIAL ONE (12:40)
[2022-02-06] MEDS ORDERED: DEXAMETHASONE 4 MG/ML VIAL ONE (12:41)
[2022-02-06] MEDS ORDERED: ONDANSETRON 4 MG/2 ML VIAL ONE (12:41)
[2022-02-06] MEDS ORDERED: BUPIVACAINE 0.5% PF 30 ML VIAL ONE (12:41)
[2022-02-06] MEDS ORDERED: LIDOCAINE MPF 2%-EPI 1:200000 20 ML VIAL ONE (12:41)
[2022-02-06] MEDS ORDERED: MIDAZOLAM 2 MG/2 ML VIAL ONE (12:41)
[2022-02-06] MEDS ORDERED: ROPIVACAINE 0.5% PF 30 ML VIAL ONE (12:43)
--- NOTE | 2022-02-06 14:14 | OPERATIVE REPORT ---
Operative Report - General Procedure Date: 02/06/22 Planned Procedure: Closed reduction left distal radius, percutaneous pin fixation fracture left distal radius Pre-Op Diagnosis: Closed, displaced intra-articular fracture left distal radius Procedure Performed: Closed reduction left distal radius fracture, percutaneous K wire fixation with multiple K wires left distal radius Post Op Diagnosis: Same as preoperative diagnosis - Procedure Note Primary Surgeon: Yousuf Gomez MD Anesthesia Technique: Moderate sedation, Regional block Estimated Blood Loss (mL): 5 Indications: This is a relatively healthy 66-year-old woman with a fall onto her outstretched left hand. She sustained a localized injury to her left wrist with pain and swelling following the fall. Her exam showed swelling, tenderness to left distal radius, limited wrist motion. Her x-ray showed a displaced shortened and angulated, mildly comminuted intra-articular and extra-articular fracture of the left distal radius. An informed consent was obtained and the patient was agreeable to close reduction of the left distal radius with percutaneous pin fixation Findings: Displaced, shortened and angulated left distal radius fracture Complications: None - Other Other Information/Narrative: The patient was brought to the operating room and was placed in a supine position with the Left arm on a arm extension table. The patient received a regional block with supplemental sedation. The Left upper extremity was prepped and draped in a sterile manner in the usual fashion. The C-arm image intensifier was utilized and covered with a sterile drape. A timeout procedure was performed by the entire operating room team and all were in agreement. Finger traps were applied to all 5 fingers and a traction bow as well. Longitudinal traction was applied, direct manipulation of the fracture site over a sterile bump. The C-arm image intensifier showed good alignment and a percutaneous pinning was performed with 0.062 K wires. The bare area of the radial styloid was engaged and pin was inserted from the styloid across the fracture to achieve bicortical fixation. An additional K wire from the radial styloid was also inserted to provide 2 bicortical K wires from the radial styloid. 2 additional K wires were inserted from the ulnar corner of the distal radius distally and these were then driven from distal to proximal and ulnar to radial. Biplanar and oblique imaging was obtained and there was good alignment of the fixation and fracture. The K wires were cut external to skin and covered with sterile balls. A well-padded short arm fiberglass splint was applied with gauze padding around the K wires. The patient tolerated the procedure well. No tourniquet was utilized.
[2022-02-06] MEDS ORDERED: oxyCODONE 5 MG TABLET PO PRN (14:23)
--- NOTE | 2022-02-06 14:31 | ANESTHESIA POST OP EVALUATION ---
Anesthesia Post Eval - Post Anesthesia Eval Vitals: Last Vital Signs Temp 36.5 C 02/06/22 14:11 Pulse 63 02/06/22 14:11 Resp 16 02/06/22 14:11 BP 154/90 H 02/06/22 14:11 Pulse Ox 99 02/06/22 14:11 CV Function Including HR & BP: Stable Pain Control: Satisfactory Nausea & Vomiting: Negative Mental Status: Baseline Respiratory Status: Airway Patent Hydration Status: Satisfactory Anesthesia Complications: None
[2022-02-06 14:42] VITALS: BP 174/100
== END 2022-02-06 11:26 | disposition home or self-care (01) ==
LOC: SDS 11:25
PROVIDERS: ATTEND Orthopaedic Surgery
DX: S52.572A Other intraarticular fracture of lower end of left radius, initial encounter for closed fracture (principal); W19.XXXA Unspecified fall, initial encounter
CPT/HCPCS: 25606; A9270; C1713; J0690; J7120

== ENCOUNTER 2022-03-20 08:00 | Outpatient (CLI) | payer MEDICARE ==
--- NOTE | 2022-03-20 14:41 | XRAY Report ---
PROCEDURE: Wrist 3 View LT INDICATIONS: LEFT WRIST FRACTURE TECHNIQUE: 3 views of the wrist were acquired. COMPARISON: 02/03/2022 plain films FINDINGS: Bones: There is improved alignment of the comminuted impacted distal radial fracture with articular s urface extension, which now appears mildly displaced. No suspicious bony lesions. Scaphoid view: Not requested Soft tissues: No suspicious soft tissue calcifications. IMPRESSION: Improved alignment of distal radial fracture. Reviewed by: Mariah Polk MD on 03/20/2022 2:40 PM PDT Approved by: Mariah Polk MD on 03/20/2022 2:40 PM PDT Station ID: [id number]
== END 2022-03-20 23:59 | disposition home or self-care (01) ==
LOC: DI.WOS 08:00
PROVIDERS: ATTEND Orthopaedic Surgery
DX: S52.572D Other intraarticular fracture of lower end of left radius, subsequent encounter for closed fracture with routine healing (principal)

== ENCOUNTER 2022-07-09 12:05 | Outpatient (CLI) | payer MEDICARE ==
[2022-07-09 17:52] LABS: BASOPHILS # (AUTO) 0.1 10^3/uL (0.0-0.1); BASOPHILS % (AUTO) 1.2 %; EOSINOPHILS # (AUTO) 0.2 10^3/uL (0.0-0.7); EOSINOPHILS % (AUTO) 4.9 %; HCT - HEMATOCRIT 41.9 % (37.0-47.0); HGB - HEMOGLOBIN 13.8 g/dL (12.0-16.0); LYMPHOCYTES % (AUTO) 40.2 %; MEAN CORPUSCULAR HEMOGLOBIN 31.2 pg (27.0-31.0); MEAN CORPUSCULAR HGB CONC 32.9 g/dL (32.0-36.0); MEAN CORPUSCULAR VOLUME 94.6 fL (81.0-99.0); MEAN PLATELET VOLUME 10.2 fL (7.9-10.8); MONOCYTES # (AUTO) 0.3 10^3/uL (0.0-1.0); NEUTROPHILS # (AUTO) 2.3 10^3/uL (1.5-6.6); NEUTROPHILS % (AUTO) 46.5 %; PLT - PLATELET COUNT 255 10^3/uL (130-450); RED BLOOD COUNT 4.43 10^6/uL (4.20-5.40); RED CELL DISTRIBUTION WIDTH 11.9 % (12.0-15.0); WHITE BLOOD COUNT 4.9 x10^3/uL (4.8-10.8)
[2022-07-09 18:00] LABS: ALBUMIN 3.8 g/dL (3.2-5.5); ALBUMIN/GLOBULIN RATIO 1.3 (1.0-2.2); ALKALINE PHOSPHATASE 67 IU/L (42-121); ALT ALANINE AMINOTRANSFERASE 15 IU/L (10-60); AST ASPARTATE AMINOTRANSFERASE 14 IU/L (10-42); BILIRUBIN,TOTAL 0.6 mg/dL (0.2-1.0); BUN - BLOOD UREA NITROGEN 15 mg/dL (6-20); CALCIUM 9.4 mg/dL (8.5-10.3); CARBON DIOXIDE - CO2 25 mmol/L (21-32); CHLORIDE 102 mmol/L (101-111); CHOL/HDL RATIO 3.3 (<4.4); CHOLESTEROL 226 mg/dL; CREATININE 0.8 mg/dL (0.4-1.0); GFR - MDRD 72 (>89); GLUCOSE 93 mg/dL (70-100); HDL CHOLESTEROL 69 mg/dL; LDL CHOLESTEROL,CALCULATED 145 mg/dL; LDL/HDL RATIO 2.1 (<4.4); SODIUM 135 mmol/L (135-145); TOTAL PROTEIN 6.7 g/dL (6.7-8.2); TRIGLYCERIDES 58 mg/dL; VLDL CHOLESTEROL 12 mg/dL
[2022-07-09 18:17] LABS: THYROID STIMULATING HORMONE 0.73 uIU/mL (0.34-5.60)
[2022-07-09 18:19] LABS: FREE T4 (FREE THYROXINE) 1.43 ng/dL (0.58-1.64)
== END 2022-07-09 12:06 | disposition home or self-care (01) ==
LOC: LAB.N 12:05
PROVIDERS: ATTEND Physician Assistant
DX: I10 Essential (primary) hypertension (principal); E78.5 Hyperlipidemia, unspecified; E03.9 Hypothyroidism, unspecified
CPT/HCPCS: 36415; 80053; 80061; 83721; 84439; 84443; 85025

== ENCOUNTER 2023-03-04 12:52 | Outpatient (CLI) | payer MEDICARE ==
--- NOTE | 2023-03-04 13:26 | Sleep Patient Instructions ---
Sleep Center Visit Summary - Patient Visit Information Reason for Visit: Annual Follow up - Patient Instructions Additional Instructions: You will continue with CPAP therapy with pressure changed to 15-16 cmH2O. A supply prescription with a set up for supplies with a CPAP supply company, [employer], has been completed and will be faxed. They should call you to set up supplies shipments. We encourage you to continue to try to lose weight. Please follow up with the sleep care office in 1 year. - Clinic Information Contact: [facility] [address] [place] [address] [email or web address] T: [phone]
--- NOTE | 2023-03-04 13:30 | SLEEP CARE CONSULTATION ---
Information from patient questionnaire entered by Pema Shell. I have reviewed and concur with the information entered by Pema Shell. This document represents the service I personally performed and the decisions made by me, Melissa Reed ARNP. History of Present Illness Service Date and Time: 03/04/2023 1252 Previous diagnosis: Severe, Obstructive Sleep Apnea-Hypopnea Syndrome AHI: 30.4 Reason for follow up: annual (LAST SEEN 07/2020) Equipment type: CPAP (Dreamstation 2; SD CARD NEEDED) Equipment obtained from: Other (online; getting supplies cheaper and as needed) Mask style: Nasal Mask brand: Respironics (Dreamwear) Backup mask available: No (will keep old mask when replaced) Last cushion change: couple months Year and Where: 2016 [facility] Type of Sleep Study: Polysomnography HPI additional information: PILAR MEDINA was diagnosed to have severe, AHI 30.4, obstructive sleep apnea- hypopnea syndrome and returned today for CPAP therapy annual follow-up. Sleep Study - Results Type of Sleep Study: Polysomnography Year and Where: 2016 [facility] CPAP Compliance Data - Data Reviewed with Patient Average duration of nightly device use: 8 hours 50 minutes Compliance rate %: 96.1 (175/180 day used) Current pressure setting (cmH2O): 12-16 (90% avg 14.0) Average residual AHI: 4.5 Central apnea: 1.9 Obstructive apnea: 1.4 Hypopnea: 1.2 Average large leak: 33 secs Subjective Patient concerns: denies: aerophagia, mask discomfort, air blowing in eyes, mask leak noise, condensation in mask/hose, nasal congestion, dry mouth, nose, throat, epistaxis Observed to snore while using device: No Current pressure setting perceived as: comfortable On therapy, patient: reports: sleeping better, awakening more refreshed, being more awake and alert during the day, more rested overall. denies: drowsiness while driving Initial Reynolds Sleepiness Scale score: 16 (in 2017) Current Reynolds Sleepiness Scale score: 5 (03/04/23) Allergies and Home Medications Known drug allergies: No Drug allergies reviewed: Yes Home medication list reviewed: Yes (stopped BP meds) Allergy and home medication list: Allergies No Known Drug Allergies Allergy (Verified 10/10/23 14:31) Review of Systems Review of systems same as previous: Yes (no changes) Physical Exam Vital signs obtained and entered by: PEMA Tran MA Blood Pressure: 132/80 (LEFT ARM) Cuff size: regular Heart Rate: 73 O2 Saturation: 95 Height: 5 ft 4 in Weight: 156 lb Body Mass Index: 26.7 BMI Classification: Overweight Impression and Plan 1. Obstructive Sleep Apnea-Hypopnea Syndrome, severe, with good treatment compliance and good apnea control. On CPAP therapy, the patient has better sleep quality and is more rested overall. The patients pressure will be changed to autoCPAP [15-16] cmH20 since her residual AHI is at 4.5 to help reduce it further. Patient advised to contact me if pressure change is uncomfortable so that it can be adjusted. Goals for apnea control discussed. She has changed insurance to Medicare and would like to get set up with a supplier. She has been buying her supplies online. For patient supply concerns, I will have my product marketing coordinator inform of DME options. A [facility] prescription will then be made. Patient advised to contact this office if further supply problems. Patient's apnea severity and rationale for treatment to reduce apnea, improve sleep quality and reduce cardiovascular and cerebrovascular events was reviewed. I also reviewed the benefit of consistent device use of CPAP for gastric reflux. 2. Overweight, unspecified. Currently patients BMI is 26.7. Obesity increases the risk of apnea, CPAP pressure requirements and overall health risks especially cardiovascular and diabetes. Thus patient is advised to lose weight. * Change auto CPAP pressure to 15-16 cmH2O * Update supply prescription * Notify me if snoring with mask or feeling that the pressure is too much or too little * Attempt to lose weight * Call this office if any problems using CPAP * Return for follow up in 1 year, or sooner if concerns arise Counseling Topics: Spare mask, Weight loss health impact Prescriptions: Device supplies, Other (DME transfer) Follow up with Sleep Care in: 1 year Visit Type: In Office Time Spent with Patient (minutes): 28 Provider Statement: I spent 100% of the Face to Face Visit with the patient with greater than 50% spent counseling the patient and coordination of care.
[2023-03-04 13:32] VITALS: BP 132/80; O2SAT 95
== END 2023-03-04 12:53 | disposition home or self-care (01) ==
LOC: SC 12:52
PROVIDERS: ATTEND Nurse Practitioner Family
DX: G47.33 Obstructive sleep apnea (adult) (pediatric) (principal); E66.3 Overweight; Z68.26 Body mass index [BMI] 26.0-26.9, adult
CPT/HCPCS: 99213; G0463; 99212

== ENCOUNTER 2023-03-04 15:08 | Outpatient (CLI) | payer MEDICARE ==
--- NOTE | 2023-03-06 14:31 | Mammography Report ---
BILATERAL DIGITAL SCREENING MAMMOGRAM 3D/2D: 03/04/2023 CLINICAL: Routine screening. Comparison is made to exams dated: 11/11/2021 mammogram, 05/01/2020 mammogram, 04/09/2018 mammogram, mammogram, 05/03/2014 mammogram, and 02/04/2013 mammogram - [facility]. Both breasts are almost entirely fatty (category a/<25% glandular tissue). No significant masses, calcifications, or other findings are seen in either breast. There has been no significant interval change. IMPRESSION: NEGATIVE There is no mammographic evidence of malignancy. A 1 year screening mammogram is recommended. Based on the Tyrer Cuzick model (a risk assessment model) the patients lifetime risk is 3.0% and her 10 year risk is 1.5%. According to the ACR, ACS, and NCCN guidelines, an annual breast MRI exam emma g with mammogram is recommended if the patients lifetime risk is 20% or greater. This exam was interpreted at Station ID: [id number]. NOTE: For mammograms, a report in lay terms will be sent to the patient. Approximately 15% of breast malignancies will not be visualized mammographically. In the management of a palpable breast mass, a negative mammogram must not discourage biopsy of a clinically suspicious lesion. Electronically Signed By: Jennifer [email or web address]/[email or web address]:03/05/2023 16:24:04 letter sent: No_Letter ACR BI-RADS Category 1: Negative 3341F PARENCHYMAL PATTERN: (F) - The breast(s) demonstrate(s) diffuse fatty replacement. BI-RADS CATEGORY: (1) - 1 Mammogram [id number] 1 year screening LATERALITY: (B)
== END 2023-03-04 15:09 | disposition home or self-care (01) ==
LOC: DI.N 15:08
DX: Z12.31 Encounter for screening mammogram for malignant neoplasm of breast (principal)

== ENCOUNTER 2023-05-09 12:45 | Outpatient (CLI) | payer MEDICARE ==
[2023-05-09 19:24] LABS: ALBUMIN/GLOBULIN RATIO 1.5 (1.0-2.2); BASOPHILS # (AUTO) 0.1 10^3/uL (0.0-0.1); BILIRUBIN,TOTAL 0.5 mg/dL (0.2-1.0); CALCIUM 9.8 mg/dL (8.5-10.3); CREATININE 0.8 mg/dL (0.6-1.3); EOSINOPHILS # (AUTO) 0.2 10^3/uL (0.0-0.7); EOSINOPHILS % (AUTO) 3.6 %; HCT - HEMATOCRIT 44.2 % (37.0-47.0); HGB - HEMOGLOBIN 14.4 g/dL (12.0-16.0); LYMPHOCYTES # (AUTO) 1.7 10^3/uL (1.5-3.5); LYMPHOCYTES % (AUTO) 34.8 %; MEAN CORPUSCULAR HEMOGLOBIN 30.5 pg (27.0-31.0); MEAN CORPUSCULAR HGB CONC 32.6 g/dL (32.0-36.0); MEAN CORPUSCULAR VOLUME 93.6 fL (81.0-99.0); MEAN PLATELET VOLUME 10.1 fL (7.9-10.8); MONOCYTES # (AUTO) 0.4 10^3/uL (0.0-1.0); NEUTROPHILS # (AUTO) 2.7 10^3/uL (1.5-6.6); NEUTROPHILS % (AUTO) 53.4 %; PLT - PLATELET COUNT 270 10^3/uL (130-450); POTASSIUM 4.3 mmol/L (3.5-4.5); RED BLOOD COUNT 4.72 10^6/uL (4.20-5.40); RED CELL DISTRIBUTION WIDTH 12.1 % (12.0-15.0); TOTAL PROTEIN 6.6 g/dL (6.4-8.9)
[2023-05-09 19:37] LABS: THYROID STIMULATING HORMONE 0.78 uIU/mL (0.34-5.60)
== END 2023-05-09 13:00 | disposition home or self-care (01) ==
LOC: LAB.N 12:45
PROVIDERS: ATTEND Family Medicine
DX: R19.4 Change in bowel habit (principal)
CPT/HCPCS: 36415; 80053; 84443; 85025

== ENCOUNTER 2024-02-10 15:20 | Outpatient (CLI) | payer MEDICARE ==
--- NOTE | 2024-02-10 21:47 | DEXA Report ---
PROCEDURE: Dexa Spine and/or Hip INDICATIONS: OSTEOPENIA TECHNIQUE: Dual energy x-ray absorptiometry (DXA) was performed on a Rocket Relief System. Regions measur ed are the AP Spine, femoral neck, and if needed forearm. COMPARISON: DEXA 09/26/2021 FINDINGS: Lumbar Spine: Bone Mineral Density: 1.204 g/cm/cm,T score: 0, compared to -1.3. Left Femoral Neck: Bone Mineral Density: 0.715 g/cm/cm, T score: -2.3, compared to -2.2. Left Hip: Bone Mineral Density: 0.691 g/cm/cm,T score: -2.5, compared to -2.3. FRAX risk factors: None given. Not applicable (T score greater or equal to -1.0: NORMAL) (T score from -1.1 to -2.4: OSTEOPENIA) (T score less than or equal to -2.5 to: OSTEOPOROSIS) Impression: By WHO criteria, this patient has severe osteopenia in the left femoral neck as well as osteoporosis in the left hip minimally progressive. Patients with diagnosis of osteoporosis or osteopenia should have regular bone mineral density assess ment. For those eligible for Medicare, routine testing is allowed once every 2 years. Testing frequ ency can be increased for patients who have rapidly progressing disease or for those who are receivin g medical therapy to restore bone mass. Reviewed by: Ayana Jose MD on 02/10/2024 9:46 PM PDT Approved by: Ayana Jose MD on 02/10/2024 9:46 PM PDT Station ID: [id number]
== END 2024-02-10 15:21 | disposition home or self-care (01) ==
LOC: DI 15:20
PROVIDERS: ATTEND Physician Assistant
DX: M81.0 Age-related osteoporosis without current pathological fracture (principal)